=== PATIENT | female | born 1945 | race Caucasian/White ===

== ENCOUNTER 2019-08-30 15:50 | Observation (INO) | payer MEDICARE, OTHER, SELFPAY ==
[2019-08-30] VITALS (8 sets, daily range): BP systolic 115–137; BP diastolic 42–79; PULSE 75–87; RESP 14–22; TEMP 36.3–36.6; O2SAT 97–100; BMI 24.1
--- NOTE | 2019-08-30 16:02 | ED.NEUROSD ---
HPI - Neuro Symptoms/Deficit General Chief Complaint: Neuro Symptoms/Deficit Stated Complaint: thinks TIA a couple of hours ago Time Seen by Provider: 08/30/19 16:02 Source: patient and family () Mode of arrival: Ambulatory Limitations: no limitations History of Present Illness HPI Narrative: This is a 73 year old female who comes emergency department with complaint of TIA like symptoms. Patient states that earlier today at about 1:00 a.m. she had sort of an aura and her right lower vision that sort of migrated centrally. She states that she developed a little bit of a headache. She took delp-yon-iuxegfm preparation of Tylenol, aspirin and caffeine patient states about 2:00 a.m. today while she was sitting talking with her she sort of lost her words. She couldn't select words and when she did they were garbled and slurred and her describes them as dysarthric. This lasted for about 5 minutes and then resolved. Neither the patient nor the appreciated any other symptoms such as lateralizing weakness, numbness or tingling. No facial droop was noted. Patient states that 1 year ago she had very fleeting symptoms that were and has not had any since. She states she has a headache that she describes as sort of floaty at this time. She denies any aura or vision change currently. She states the 1 that occurred was about 30 minutes. She did not have any loss of vision. She also denies any chest pain, nausea, vomiting or other GI or urinary symptoms. She takes medication for overactive bladder and hormone replacement for thyroid. She has had trigger finger surgery x9, carpal tunnel and bunion surgery. She has some allergies to foods but denies any medication allergies. No tobacco, she had a half glass of wine last night, no illicit. Dr. Campos is her primary care. On Anticoagulants: No Related Data Home Medications Medication Instructions Recorded Confirmed ASCORBIC ACID (VITAMIN C) 500 mg PO QAM & PM #0 06/09/11 CA PANTOTHENATE/FOLIC ACID/VIT 1 tab PO Q DAY #0 06/09/11 (MULTIVITAMIN) CALCIUM CARBONATE (#CALCIUM 600) 1 tab PO Q DAY #0 06/09/11 CYANOCOBALAMIN (VITAMIN B-12) 1,000 mcg PO QDAY #0 06/09/11 Coenzyme Q10 (#COENZYME Q-10) 100 mg PO Q DAY #0 06/09/11 Fish Oil (#OMEGA 3) 1 - 2 cap PO TID #0 06/09/11 GLUCOSAMINE HCL/CHONDR BUSTILLOS A NA 1 - 2 tab PO TID #0 06/09/11 (Glucosamine-Chondroitin Caplet) SELENIUM (#SELENIUM) 200 mcg PO Q DAY #0 06/09/11 STRONTIUM (#STRONTIUM) 340 mg PO NOON & HS #0 06/09/11 Thioctic Acid (ALPHA LIPOIC ACID~) 200 mg PO Q DAY #0 06/09/11 [DHEA] #0 06/09/11 [GELATIN] 20 gr PO TID #0 06/09/11 [MAGNESIUM] #0 06/09/11 [THYROID COMPOUND ] 3 gr PO QAM #0 06/09/11 [VITAMIN K2] 1.5 mg PO AT NOON #0 06/09/11 cholecalciferol (vitamin D3) 5,000 iu PO QDAY #0 06/09/11 [Vitamin D3] CHOLECALCIFEROL (VITAMIN D3) 5,000 iu PO #0 05/20/12 MELATONIN (#MELATONIN) 5 mg PO HS #0 05/20/12 Pregnenolone (#PREGNENOLONE) 50 mg PO QDAY #0 05/20/12 [TESTOSTERONE LIPO CR] 20 mg TP #0 05/20/12 metronidazole [MetroCream] 0.75 % TOPICAL BID #45 gm 05/20/12 tacrolimus [Protopic] 0.1 TP Q DAY #0 05/20/12 [PROGESTERONE CREAM] #0 01/18/17 Previous Rx's Medication Instructions Recorded estradiol 2 mg tablet 3 mg PO DAILY #135 tab 07/14/18 mirabegron 25 mg tablet,extended 25 mg PO .QHS #90 tab 03/30/19 release 24 hr Allergies Allergy/AdvReac Type Severity Reaction Status Date / Time No Known Drug Allergies Allergy Verified 08/30/19 16:57 Review of Systems Review of Systems ROS Unobtainable: All systems reviewed & are unremarkable except as noted in HPI and below Patient History Social History (Updated 08/30/19 @ 16:36 by Brenda Guzmán DO) marital status: Smoking Status: Never smoker alcohol intake: current substance use type: does not use Smoking Status: Never smoker Exam Narrative Exam Narrative: GEN: well nourished, well appearing female, alert and oriented x 3, patient appears to be in mild distress. HEENT: Atraumatic, pupils are equal round reactive to light, extraocular movements are intact, nares are clear, TMs are clear with no fluid, there is no conjunctival pallor. Throat is clear without any exudates, erythema, tonsillar enlargement or uvular deviation, no facial droop. HEART: Regular rate and rhythm without murmur, clicks, rubs. LUNGS:Lungs clear to auscultation, no wheezes, rales, crackles, chest moves symmetrically ABD:bowel sounds normal, soft, non-tender, no guarding, rebound, rigidity, no masses noted, no hepatosplenomegaly :No CVA tenderness MSCL: Non-tender, no muscle atrophy, muscles strength 5/5 upper and lower extremities, full range of motion, normal gait NEURO:CN 2-12 intact, sensation normal, reflexes 2/4 upper and lower extremities. finger nose finger test normal, heel hammond test normal SKIN: No rash. No skin changes. Initial Vital Signs Initial Vital Signs: Vital Signs Temperature 97.8 F 08/30/19 16:01 Pulse Rate 80 08/30/19 16:01 Respiratory Rate 22 08/30/19 16:01 Blood Pressure 133/79 08/30/19 16:01 Pulse Oximetry 97 08/30/19 16:01 Scores NIH Stroke Scale Level of Conciousness: Alert, keenly responsive Ask month/age: Answers both questions correctly. Open/close eyes, close hand: Performs both tasks correctly Best gaze horizontal: Normal Facial palsy: Normal symetrical movement Left arm drift: No drift for full 10 sec Right arm drift: No drift for full 10 sec Left leg drift: No drift for full 10 sec Right leg drift: No drift for full 10 sec Limb ataxia: Absent Sensory on face/arms/legs: Normal, no sensory loss Best language: No aphasia, normal Dysarthria: Normal Extinction or inattention: No abnormality Course Orders Ordered: ED Orders 08/30/19 16:05 EKG-12 Lead Routine 08/30/19 16:25 Basic Metabolic Panel Stat Complete Blood Count AUTO DIFF Stat Partial Thromboplastin Time Stat Prothrombin Time INR Stat Troponin I Stat 08/30/19 16:26 CT head/brain wo con Stat Urine Drug Screen, Rapid Stat 08/30/19 16:27 CT angio head and neck Stat Sodium Chloride (Normal Saline 0.9%) 1,000 mls @ 150 mls/hr IV CONT NASIM Last Admin: 08/30/19 16:30 Dose: 150 mls/hr Documented by: KALEIGH Discontinued Medications Aspirin (Aspirin Chew) 324 mg PO NOW ONE Stop: 08/30/19 17:23 Last Admin: 08/30/19 17:37 Dose: 324 mg Documented by: KALEIGH Vital Signs Vital signs: Vital Signs - 8 hr 08/30/19 16:01 08/30/19 16:30 08/30/19 17:35 Temperature 97.8 F Pulse Rate 80 77 81 Respiratory Rate 22 14 22 Blood Pressure [Left Arm] 133/79 137/63 132/59 L Pulse Oximetry 97 97 97 08/30/19 18:00 08/30/19 18:30 Temperature Pulse Rate 87 79 Respiratory Rate 16 19 Blood Pressure [Left Arm] 115/42 L 129/53 L Pulse Oximetry 100 100 MDM - Neuro Symptoms/Deficit Lab Data Attestation: I reviewed the patient's lab results. Result diagrams: 08/30/19 16:25 08/30/19 16:25 Labs: Lab Results 08/30/19 08/30/19 08/30/19 Range/Units 16:25 16:25 16:25 WBC 5.0 (4.5-11.0) X10^3/uL RBC 4.83 (4.0-5.2) X10^6/uL Hgb 14.2 (12.0-16.0) g/dL Hct 41.6 (36-46) % MCV 86.2 (80-100) fL MCH 29.5 (26-34) PG MCHC 34.2 (30-36) % RDW 13.0 (11.6-14.8) % Plt Count 201 (150-400) X10^3/uL Neut % (Auto) 51.5 (50-75) % Lymph % (Auto) 32.4 (25-40) % [place] % (Auto) 13.2 (3-14) % Eos % (Auto) 1.8 L (2-4) % Baso % (Auto) 1.1 (0-2) % Neut # (Auto) 2600 (8935-2771) /uL Lymph # (Auto) 1600 (6789-9272) /uL [place] # (Auto) 700 (0-900) /uL Eos # (Auto) 100 (0-450) /uL Baso # (Auto) 100 (0-100) /uL PT 10.9 (10.1-12.7) SECONDS INR 0.9 (0.9-1.3) APTT 26 L (26.4-36.2) SECONDS Sodium 140 (137-145) mmol/L Potassium 4.2 (3.4-5.1) mmol/L Chloride 105 (98-107) mmol/L Carbon Dioxide 27 (22-32) mmol/L BUN 17 (7-17) mg/dL Creatinine 0.80 (0.52-1.04) mg/dL Estimated GFR > 60.0 (>60) mL/min BUN/Creatinine Ratio 21.3 (6-22) Glucose 86 (80-110) mg/dL Calcium 9.7 (8.4-10.2) mg/dL Troponin I < 0.012 (0.01-0.034) ng/mL Imaging Data CT scan - head: Radiologist's Impression: Lynne Nunes 73 [address] [place] [id number] CT Scan Report Signed Patient: Lynne Nunes EMR#: [id number] : [id number]:[id number] Age/Sex: 73 / FDate of Service: 08/30/19 Loc: ED Accession Number: [id number] Procedure: CT head/brain wo con Ordering Provider: Brenda Guzmán D.O. PROCEDURE: CT HEAD/BRAIN WO CON INDICATIONS: garbled speech, dysarthria x 5 minutes @ 1400 TECHNIQUE: Noncontrast 4.5 mm thick angled axial sections acquired from the foramen magnum to the vertex, with coronal and sagittal reformats. For radiation dose reduction, the following was used: automated exposure control, adjustment of mA and/or kV according to patient size. COMPARISON: None. FINDINGS: Image quality: Excellent. CSF spaces: Basal cisterns are patent. No extra-axial fluid collections. The ventricles are symmetric in size and shape. Brain: No intracranial bleeds or masses. There is cerebral volume loss for age, with resultant ventricular and sulcal prominence. There are periventricular and deep white matter chronic small vessel ischemic changes. There is intracranial internal carotid artery atherosclerosis. Skull and face: Calvarium and visualized facial bones appear intact, without suspicious lesions. Sinuses: Visualized sinuses and mastoids are clear. IMPRESSION: Normal intracranial study for age, without acute intracranial hemorrhage or CT findings of early infarction. Dictated by: Amor Fernando M.D. on 08/30/2019 at 16:12 Approved by: Amor Fernando M.D. on 08/30/2019 at 16:13 CTA - brain/neck: Radiologist's Impression: [address] [address] [address] Scan Report Signed Patient: Lynne Nunes EMR#: [id number] : [id number]:[id number] Age/Sex: 73 / FDate of Service: 08/30/19 Loc: ED Accession Number: [id number] Procedure: CT angio head and neck Ordering Provider: Brenda Guzmán D.O. PROCEDURE: CT ANGIO HEAD AND NECK INDICATIONS: garbled speech x 5 minutes. TECHNIQUE: Noncontrast images were previously performed and not repeated. After the administration of intravenous contrast, 1 mm thick sections acquired from the aortic arch through the [place]. Post-contrast 4.5 mm thick sections then re-acquired from the foramen magnum to the vertex. 3-dimensional obzkpwf-csdimlvrx-xozzrdmbub (MIP) and/or volume rendering reformats were acquired of the central intracranial vasculature and neck separately. COMPARISON: [facility], CT, CT HEAD/BRAIN WO CON, 08/30/2019, 17:03. FINDINGS: Image quality: Excellent. BRAIN: CSF spaces: Ventricles are normal in size and shape. Basal cisterns are patent. No extra-axial fluid collections. Brain: No midline shift. No intracranial bleeds or masses. Win-white matter interface appears intact. Skull and face: Calvarium and facial bones appear intact, without suspicious lesions. Orbits appear normal. Sinuses: Sinuses and mastoids are clear. HEAD CT ANGIOGRAPHY: Anterior circulation: Intracranial internal carotid arteries are normal in size and flow. The flow within the paired anterior cerebral arteries is normal and symmetric. The flow within the middle cerebral arteries is normal and symmetric. The anterior communicating artery is seen. No aneurysms are seen. Posterior circulation: Visualized portions of the vertebral arteries demonstrate normal caliber, and join to form a normal appearing basilar artery. Flow within the posterior cerebral arteries is normal and symmetric. No aneurysms are seen. NECK CT ANGIOGRAPHY: Carotid system: The great vessels demonstrate a conventional anatomy as they arise from the aortic arch. The origins of the common carotid arteries appear patent. The common carotid arteries demonstrate normal caliber and courses. The bifurcation regions are both widely patent. The internal carotid arteries demonstrate normal calibers and courses. Posterior circulation: The origins of the vertebral arteries both appear widely patent. Incidental note is made that the left vertebral artery arises directly from the aortic arch, which is considered to be a normal developmental variant. The more superior extracranial portions of both vertebral arteries also demonstrate normal courses and calibers. They join to form a normal appearing basilar artery. Soft tissues: Visualized neck soft tissues demonstrate no suspicious abnormalities. Bones: No suspicious bony lesions. Visualized cervical spine appears normally aligned. Age-appropriate bony degenerative changes are seen. IMPRESSION: No significant intracranial arterial abnormality is seen. No abnormal enhancement can be seen of the brain. Normal appearing carotids and vertebral arteries. Anatomic variant of a direct origin of the left vertebral artery from the aortic arch incidentally noted. Any quantitative measurements of stenosis were performed using NASCET criteria. Dictated by: Amor Fernando M.D. on 08/30/2019 at 17:06 Approved by: Amor Fernando M.D. on 08/30/2019 at 17:09 ECG Data Attestation: I personally reviewed and interpreted this ECG as follows: Prior ECG tracings: not available for review Interpretation: Sinus rhythm rate of 75 MD 191 QRS is 68 QTC of 377. No ST elevation or depression. [facility] Narrative Medical decision making narrative: Patient NIH is 0. She had one episode of some does with no additional so she is not a tPA candidate but does sound like she may have had a TIA earlier. Head CT and CT angiography show IV labs do not show any major abnormalities. EKG is sinus rhythm. No prior history of Afib. ASA 324 mg given. Patient continues to be asymptomatic. Patient and family are comfortable with observation for TIA. Discussed with Dr. Klein who accepts for observation for TIA. Discharge Plan Departure Patient Disposition: Admitted as Observation Clinical Impression: TIA (transient ischemic attack)
--- NOTE | 2019-08-30 16:26 | DI.CT.S_ITS ---
PROCEDURE: CT HEAD/BRAIN WO CON INDICATIONS: garbled speech, dysarthria x 5 minutes @ 1400 TECHNIQUE: Noncontrast 4.5 mm thick angled axial sections acquired from the foramen magnum to the vertex, with coronal and sagittal reformats. For radiation dose reduction, the following was used: automated exposure control, adjustment of mA and/or kV according to patient size. COMPARISON: None. FINDINGS: Image quality: Excellent. CSF spaces: Basal cisterns are patent. No extra-axial fluid collections. The ventricles are symmetric in size and shape. Brain: No intracranial bleeds or masses. There is cerebral volume loss for age, with resultant ventricular and sulcal prominence. There are periventricular and deep white matter chronic small vessel ischemic changes. There is intracranial internal carotid artery atherosclerosis. Skull and face: Calvarium and visualized facial bones appear intact, without suspicious lesions. Sinuses: Visualized sinuses and mastoids are clear. IMPRESSION: Normal intracranial study for age, without acute intracranial hemorrhage or CT findings of early infarction. Dictated by: Amor Fernando M.D. on 08/30/2019 at 16:12 Approved by: Amor Fernando M.D. on 08/30/2019 at 16:13
--- NOTE | 2019-08-30 16:27 | DI.CT.S_ITS ---
PROCEDURE: CT ANGIO HEAD AND NECK INDICATIONS: garbled speech x 5 minutes. TECHNIQUE: Noncontrast images were previously performed and not repeated. After the administration of intravenous contrast, 1 mm thick sections acquired from the aortic arch through the [place]. Post-contrast 4.5 mm thick sections then re-acquired from the foramen magnum to the vertex. 3-dimensional violiwl-lqmiixoht-wughbamfhh (MIP) and/or volume rendering reformats were acquired of the central intracranial vasculature and neck separately. COMPARISON: [facility], CT, CT HEAD/BRAIN WO CON, 08/30/2019, 17:03. FINDINGS: Image quality: Excellent. BRAIN: CSF spaces: Ventricles are normal in size and shape. Basal cisterns are patent. No extra-axial fluid collections. Brain: No midline shift. No intracranial bleeds or masses. Win-white matter interface appears intact. Skull and face: Calvarium and facial bones appear intact, without suspicious lesions. Orbits appear normal. Sinuses: Sinuses and mastoids are clear. HEAD CT ANGIOGRAPHY: Anterior circulation: Intracranial internal carotid arteries are normal in size and flow. The flow within the paired anterior cerebral arteries is normal and symmetric. The flow within the middle cerebral arteries is normal and symmetric. The anterior communicating artery is seen. No aneurysms are seen. Posterior circulation: Visualized portions of the vertebral arteries demonstrate normal caliber, and join to form a normal appearing basilar artery. Flow within the posterior cerebral arteries is normal and symmetric. No aneurysms are seen. NECK CT ANGIOGRAPHY: Carotid system: The great vessels demonstrate a conventional anatomy as they arise from the aortic arch. The origins of the common carotid arteries appear patent. The common carotid arteries demonstrate normal caliber and courses. The bifurcation regions are both widely patent. The internal carotid arteries demonstrate normal calibers and courses. Posterior circulation: The origins of the vertebral arteries both appear widely patent. Incidental note is made that the left vertebral artery arises directly from the aortic arch, which is considered to be a normal developmental variant. The more superior extracranial portions of both vertebral arteries also demonstrate normal courses and calibers. They join to form a normal appearing basilar artery. Soft tissues: Visualized neck soft tissues demonstrate no suspicious abnormalities. Bones: No suspicious bony lesions. Visualized cervical spine appears normally aligned. Age-appropriate bony degenerative changes are seen. IMPRESSION: No significant intracranial arterial abnormality is seen. No abnormal enhancement can be seen of the brain. Normal appearing carotids and vertebral arteries. Anatomic variant of a direct origin of the left vertebral artery from the aortic arch incidentally noted. Any quantitative measurements of stenosis were performed using NASCET criteria. Dictated by: Amor Fernando M.D. on 08/30/2019 at 17:06 Approved by: Amor Fernando M.D. on 08/30/2019 at 17:09
[2019-08-30] MEDS: SODIUM CHLORIDE 0.9% 1,000 ML 150 ML IV (16:30)
[2019-08-30 16:35] LABS: Add Manual Diff / Slide Review NO; Basophils Absolute Auto 100 /uL (0-100); Basophils Percent Auto 1.1 % (0-2); Eosinophils Absolute Auto 100 /uL (0-450); Eosinophils Percent Auto 1.8 % (2-4); Hematocrit 41.6 % (36-46); Hemoglobin 14.2 g/dL (12.0-16.0); Lymphocytes Absolute Auto 1600 /uL (1100-4500); Lymphocytes Percent Auto 32.4 % (25-40); Mean Corpuscular HGB Conc 34.2 % (30-36); Mean Corpuscular Hemoglobin 29.5 PG (26-34); Mean Corpuscular Volume 86.2 fL (80-100); Monocytes Absolute Auto 700 /uL (0-900); Monocytes Percent Auto 13.2 % (3-14); Neutrophils Absolute Auto 2600 /uL (1500-7000); Neutrophils Percent Auto 51.5 % (50-75); Platelet Count 201 X10^3/uL (150-400); Red Blood Cell Count 4.83 X10^6/uL (4.0-5.2)
[2019-08-30 16:36] LABS: INR 0.9 (0.9-1.3); Prothrombin Time 10.9 SECONDS (10.1-12.7)
[2019-08-30 16:38] LABS: PTT Partial Thromboplastin Tim 26 SECONDS (26.4-36.2)
[2019-08-30 16:39] LABS: BUN Creatinine Ratio 21.3 (6-22); Blood Urea Nitrogen 17 mg/dL (7-17); Calcium 9.7 mg/dL (8.4-10.2); Carbon Dioxide 27 mmol/L (22-32); Chloride 105 mmol/L (98-107); Estimated Glomerular Filt Rate > 60.0 mL/min (>60); Glucose 86 mg/dL (80-110); HEMOLYSIS 37 (0-50); Potassium 4.2 mmol/L (3.4-5.1); Sodium 140 mmol/L (137-145)
[2019-08-30 16:51] LABS: Troponin I < 0.012 ng/mL (0.01-0.034)
--- NOTE | 2019-08-30 17:00 | PC.NURSE ---
Slurred speech, now resolved. Has slight headache
[2019-08-30] MEDS: ASPIRIN 81 MG CHEW TAB 324 MG PO (17:37)
--- NOTE | 2019-08-30 20:05 | PC.ADMIT ---
[email or web address] [facility] [address] Admission Note: The patient,Lynne Nunes,73 y/o, was given written information regarding hospital policies, unit procedures and contact persons. Patient's smoking status: Never smoker. Pt arrived to room 211 via w/c. Able to ambulate to bed from w/c. IVF of NS started in ED continues to infuse at 150 ml/hr. Denies pain. NIH 0. Oriented to room and call system. Bed alarm placed on. Pt verbalized she will call for needs. Vital Signs - 8 hr 08/30/19 16:01 08/30/19 16:30 08/30/19 17:35 Temperature 97.8 F Pulse Rate 80 77 81 Respiratory Rate 22 14 22 Blood Pressure Blood Pressure [Left Arm] 133/79 137/63 132/59 L Pulse Oximetry 97 97 97 08/30/19 18:00 08/30/19 18:30 08/30/19 19:47 Temperature 97.3 F L Pulse Rate 87 79 75 Respiratory Rate 16 19 18 Blood Pressure 137/73 Blood Pressure [Left Arm] 115/42 L 129/53 L Pulse Oximetry 100 100 98
--- NOTE | 2019-08-30 20:35 | DI.MRI.S_ITS ---
PROCEDURE: MR STROKE Pre- and post-contrast brain MRI, non-contrast brain MR angiogram, pre- and postcontrast neck MR angiogram INDICATIONS: TIA TECHNIQUE: Brain: Noncontrast axial T1 spin echo, axial T2 fast spin echo, sagittal and axial FLAIR, coronal T2 fast spin echo, axial gradient echo, axial diffusion and ADC through the brain. After the administration of contrast, axial 3D VIBE of the cranial vasculature and brain. Brain MRA: Non-contrast 3-D time of flight MR angiogram, with multiple aoyjwtw-glbuxzbaz-jogoprqrcm (MIP) reformats performed. Neck MRA: Axial and sagittal TruFISP through the neck. Coronal dynamic MR angiogram during administration of contrast in the arterial and venous phases, with 3-dimenstional pvvctaa-bivngmjoz-dahipeeblg (MIP) reformats constructed from subtraction images. COMPARISON: [facility], CT, CT ANGIO HEAD AND NECK, 08/30/2019, 17:08. [facility], CT, CT HEAD/BRAIN WO CON, 08/30/2019, 17:03. FINDINGS: Image quality: Excellent. BRAIN: CSF spaces: Ventricles are normal in size and shape. Basal cisterns are patent. No extra-axial fluid collections. Brain: There is a small 4 x 6 x 3 mm enhancing lesion in the right internal auditory canal shows imaging characteristics most compatible with vestibular schwannoma. No intracranial bleeds or mass effects. Win-white matter interface is normal. Diffusion weighted images show no acute ischemic insults. Brainstem appears normal. There is mild, diffuse cerebral and loss. There are mild periventricular, subcortical, subinsular and pontine white matter chronic microvascular ischemic changes. No GRE weighted abnormalities identified in the brain parenchyma. Normal intravascular flow voids are present. No abnormal intracranial enhancement. Skull and face: Calvarial marrow signal is normal. Orbits appear normal. Sinuses: Sinuses and mastoids are clear. BRAIN MR ANGIOGRAM: Anterior circulation: Intracranial internal carotid arteries are normal in size and enhancement. The flow within the paired anterior cerebral arteries is normal and symmetric. The flow within the middle cerebral arteries is normal and symmetric. The anterior communicating artery is seen. No stenoses, occlusions, or aneurysms. Posterior circulation: The visualized portions of the vertebral arteries demonstrate normal caliber, and join to form a normal appearing basilar artery. The flow within the posterior cerebral arteries is normal and symmetric. No stenoses, occlusions, or aneurysms. Dural sinuses demonstrate normal postcontrast enhancement. NECK MR ANGIOGRAM: Carotids: Great vessels demonstrate a conventional anatomy as they arise from the aortic arch. The origins of the common carotid arteries appear patent. The calibers and courses of both common carotid arteries are normal. The bifurcation regions appear normal bilaterally. The internal carotid arteries demonstrate normal course and caliber. Posterior circulation: The origins of the vertebral arteries appear patent. The left vertebral artery arises from the aortic arch. More superior portions of both vertebral arteries demonstrate normal course and caliber, and join to form a normal appearing basilar artery. Miscellaneous: Subclavian arteries appear patent. Pre-contrast images through the neck show no soft tissue abnormalities. IMPRESSION: BRAIN MRI: 1. No acute intracranial disease process. 2. No areas of acute infarction. 3. Mild diffuse cerebral volume loss. 4. Mild white matter microvascular ischemic changes. 5. 4 x 6 x 3 mm enhancing mass in the right internal auditory canal most compatible with vestibular schwannoma. BRAIN MR ANGIOGRAM: Negative examination. NECK MR ANGIOGRAM: Negative examination. Dictated by: Ada Rodriguez MD, PhD on 08/31/2019 at 11:48 Approved by: Ada Rodriguez MD, PhD on 08/31/2019 at 11:59
--- NOTE | 2019-08-30 20:40 | DI.ECHO.S_ITS ---
[facility] +---------+ : : [address] : : : : [id number] : : : : Phone: [phone]+ Echocardiogram Report + + :Name: MIKEY TEJADA Study Date: 08/31/2019 Height: 65 in : :[facility] [employer] [facility] Weight: 145 lb : : Gender: Female BSA: 1.7 m2 : :: 1945 Age: 73 yrs BP: 132/58 mmHg: :Reason For Study: TIA : :Ordering Physician: Yeimi : :Hospitalist Performed By: Yeison Bundy : :Referring: DAE KITCHEN : + + Interpretation Summary The left ventricle is normal in size. The ejection fraction is estimated to be 60-65%. The right ventricle is normal in size and function. There is mild to moderate mitral regurgitation. The right ventricular systolic pressure is estimated to be at least 33 mmHg based on an estimated right atrial pressure of 8 mm Hg. Injection of contrast documented no interatrial shunt. Procedure: A two-dimensional transthoracic echocardiogram with color flow and Doppler was performed. The study quality was technically adequate. A saline contrast injection was performed to assess for cardiac shunting. There is no prior echocardiogram noted for this patient. The patient was in normal sinus rhythm during the exam. Left Ventricle: The left ventricle is normal in size. There is normal left ventricular wall thickness. There is no thrombus. A false chord is noted (normal variant). Left ventricular systolic function is normal. The ejection fraction is estimated to be 60-65%. Left ventricular wall motion is normal. MV E/A: 1.2 Med Peak E' Elvin: 8.9 cm/sec E/E' med: 14.7. Right Ventricle: The right ventricle is normal in size and function. Atria: The left atrium is borderline dilated. Right atrial size is normal. The interatrial septum is intact with no evidence for an atrial septal defect. Injection of contrast documented no interatrial shunt. Mitral Valve: There is mild mitral annular calcification. The mitral valve leaflets are mildly calcified. There is mild to moderate mitral regurgitation. Aortic Valve: The aortic valve is not well visualized. The aortic valve is slightly calcified. There is no hemodynamically significant valvular aortic stenosis. There is trace aortic regurgitation. Tricuspid Valve: The tricuspid valve is normal. There is mild tricuspid regurgitation. The right ventricular systolic pressure is estimated to be at least 33 mmHg based on an estimated right atrial pressure of 8 mm Hg. Pulmonic Valve: The pulmonic valve is not well seen, but is grossly normal. There is trace pulmonic regurgitation. Great Vessels: The aortic root is normal size. The ascending aorta could not be visualized. The pulmonary artery is normal size. The IVC is dilated (diameter is greater than 2.1 cm) yet it collapses greater than 50% with a sniff. This suggests a right atrial pressure of 8 mm Hg. Pericardium/ Pleura There is no pericardial effusion. There is an anterior echo-free space consistent with a fat pad. There is no pleural effusion. MMode/2D Measurements & Calculations LVIDd: 3.7 cm LVOT diam: 1.9 cm LVIDs: 2.5 cm Ao root diam: 2.6 cm FS: 32.4 % EPSS: 0.60 cm IVSd: 0.88 cm LVPWd: 0.99 cm LV hernandez. diameter/BSA (cm/m^2): 2.2 LV sys. diameter/BSA (cm/m^2): 1.5 LA A2 area: 18.5 cm2 RA long axis: 4.6 cm LA A4 area: 17.4 cm2 RA area: 12.1 cm2 LA length (vol): 4.7 cm RA vol: 27.3 ml LA vol: 57.9 ml RA : 15.8 ml/m2 LA vol index: 33.6 ml/m2 TAPSE: 2.9 cm Doppler Measurements & Calculations Ao V2 max: 129.3 cm/sec LVOT Max Elvin: 100.7 cm/sec Ao V2 mean: 84.5 cm/sec LV V1 max P.1 mmHg Ao max P.7 mmHg LV V1 VTI: 21.8 cm Ao mean P.3 mmHg KELLY(I,D): 2.4 cm2 Ao V2 VTI: 26.7 cm KELLY(V,D): 2.3 cm2 sev ratio: 0.82 KELLY indexed to BSA (cm^2/m^2): 1.4 MV E max elvin: 130.6 cm/sec TR max elvin: 249.9 cm/sec MV A max elvin: 110.2 cm/sec TR max P.0 mmHg MV E/A: 1.2 PA V2 max: 98.7 cm/sec Med Peak E' Elvin: 8.9 cm/sec PA V2 mean: 69.4 cm/sec E/E' med: 14.7 PA mean P.2 mmHg Lat Peak E' Elvin: 10.6 cm/sec PA Accel Time: 0.09 sec E/E' lat: 12.4 E/e' average: 13.5 MV dec time: 0.20 sec SV(LVOT): 63.3 ml Reading Physician:02:06 PM
[2019-08-30 21:05] LABS: Magnesium 2.3 mg/dL (1.6-2.3)
[2019-08-30] MEDS: MELATONIN 3 MG TABLET 6 MG PO (22:43)
--- NOTE | 2019-08-30 23:16 | PM.HP.1 ---
History of Present Illness History of Present Illness Date Patient Seen: 08/30/19 Time Patient Seen: 20:10 Chief complaint: thinks TIA a couple of hours ago Narrative: Ms. Lynne Nunes is a 73-year-old female patient with a history significant for migraines, functional murmur, irritable bladder with urgency who presents to the ER following episode of aphasia. Patient states that approximately 11 this morning she was working in a computer when she developed change in her vision in the right lower quadrant that progressed into the central vision of her right eye. The patient also describes an atypical headache with pain moving from her protestant to the lateral head and moving back and forth side to side. Her who is retired OBGYN physician had her take migraine medication that sounds to be Fioricet. The patient's symptoms lasted for 30 minutes returning to normal. Patient subsequently was speaking with her in approximately 2 in the afternoon when she developed difficulty speaking described as speaking gibberish. The symptoms lasted for 5 minutes. Patient endorses a history of a similar situation occurring approximately 1 year ago with aphasia that was not evaluated at that time. Prior to today's events the patient states she has been in good health and denies fevers or chills, headaches or dizziness, nasal congestion or sore throat. She has had no chest pain and denies palpitations but notes history of a functional murmur since childhood. She has had no shortness of breath cough or wheezing. She denies abdominal pain, heartburn, nausea vomiting, diarrhea or constipation. She has urinary urgency for which she takes Myrbetriq. She reports balance problems for which she is taking yoga. She has sustained a fall 2 weeks ago when she got ?tangled up in equipment?. Upon arrival to the ER the patient is afebrile with temperature 97.8?, heart rate of 80, blood pressure 133/79, respirations of 22 saturating 97% on room air. CT of the head was obtained was negative for early infarct hemorrhage. The CT angio of the head neck was obtained which shows no filling defects. On laboratory analysis she has white count of 5.0 with hemoglobin of 14.2 and hematocrit of 41.6 and platelets of 201. She has a PT of 10.4 and INR of 0.9 and PTT of 26. Her electrolytes are all within normal limits she has a BUN of 17 and creatinine 0.8. Her nonfasting glucose is 86. Troponin is less than 0.01 2. On ED evaluation patient's symptoms had completely resolved within NIH score 0. Patient is admitted to the medicine service for further evaluation and monitoring of TIA. Patient History Medical History Heart murmur (Acute) Hormone replacement therapy (Inactive) Migraines (Acute) Rosacea (Acute) Urge incontinence of urine (Inactive 05/28/15) Surgical History History of bunionectomy (Acute) History of carpal tunnel release of both wrists (Acute) Status post trigger finger release (Acute) Family & Social History Family History (Updated 08/30/19 @ 23:33 by CASEY Dawson) Father Congestive heart failure Mother Stroke Sister No significant medical problems Social History: household members spouse Prior Living Arrangements House Safety & Behavioral: Feels Safe in Current Yes Environment Been Physically Hurt or No Threatened By a Person Suicidal Ideation Description None Suicide Plan Description No Plan Tobacco & Substance use: Smoking Status Former smoker alcohol intake current alcohol intake frequency a few times a week Substance Use Type does not use Comment: Patient lives in a single family home with her to whom she has been for 50 years who is retired physician. She endorses a family history of her father passing away from CHF and her mother having a stroke. She has a sister who she describes as healthy with no significant medical issues and 2 children both in good health. Smoking: Patient smoked socially in college only, no other use of tobacco products. Alcohol: Patient endorses 2-3 glasses of wine per week Substance use: Patient denies recreation pharmaceuticals, herbal or cannabis products. Advanced directives: The patient states her desire to be FULL CODE. She designates her Nilay to be her surrogate decision maker. Meds Home Medications and Allergies Home Medications Medication Instructions Recorded Confirmed Type cholecalciferol (vitamin D3) 5,000 iu PO QDAY #0 06/09/11 History [Vitamin D3] magnesium 400 mg PO DAILY #0 06/09/11 08/30/19 History melatonin 20 mg PO BEDTIME #0 05/20/12 08/30/19 History metronidazole [MetroCream] 0.75 % TOPICAL BID #45 gm 05/20/12 08/30/19 History estradiol 2 mg tablet 3 mg PO DAILY #135 tab 07/14/18 08/30/19 Rx mirabegron 25 mg tablet,extended 25 mg PO .QHS #90 tab 03/30/19 08/30/19 Rx release 24 hr alpha lipoic acid 200 mg PO DAILY 08/30/19 08/30/19 History aspirin [Aspirin Low Dose] 81 mg PO QPM 08/30/19 08/30/19 History calcium carbonate-vitamin D3 1 tab PO QPM 08/30/19 08/30/19 History [Calcium 600 + D(3)] coQ10 (ubiquinol) 200 mg PO DAILY 08/30/19 08/30/19 History xaztgcjlxto-fbahepkzz-ime C-Mn 1.5 cap PO BID 08/30/19 08/30/19 History [Glucosamine Chondroitin MaxStr] hydroquinone microspheres 1 applic TOPICAL QAM AND QHS 08/30/19 08/30/19 History lutein 20 mg PO DAILY 08/30/19 08/30/19 History Allergies Allergy/AdvReac Type Severity Reaction Status Date / Time No Known Drug Allergies Allergy Verified 08/30/19 16:57 Review of Systems Review of Systems Narrative: All systems are reviewed and are unremarkable and discussed in HPI above. Exam Vital Signs (past 8 hours): - 08/30/19 16:01 08/30/19 16:30 08/30/19 17:35 Temperature 97.8 F Pulse Rate 80 77 81 Respiratory Rate 22 14 22 Blood Pressure Blood Pressure [Left Arm] 133/79 137/63 132/59 L Pulse Oximetry 97 97 97 08/30/19 18:00 08/30/19 18:30 08/30/19 19:47 Temperature 97.3 F L Pulse Rate 87 79 75 Respiratory Rate 16 19 18 Blood Pressure 137/73 Blood Pressure [Left Arm] 115/42 L 129/53 L Pulse Oximetry 100 100 98 08/30/19 21:15 08/30/19 21:53 Temperature 97.3 F L Pulse Rate 75 Respiratory Rate 18 Blood Pressure 137/73 Blood Pressure [Left Arm] Pulse Oximetry 98 100 Oxygen Delivery Method Room Air Narrative Exam Narrative: GENERAL APPEARANCE: well developed, well nourished woman appearing younger than her stated age, in no acute distress. HEENT: Symmetrical facies, no ptosis, PERRLA, conjunctiva clear, EOMs intact without nystagmus, no sinus tenderness to percussion, no rhinorrhea, mucous membranes are moist and pink without lesions or exudate. NECK/THYROID: neck supple, no JVD, no carotid bruit, no thyromegaly, trachea midline. LYMPH NODES: no cervical or supraclavicular lymphadenopathy. SKIN: [place], warm and dry, no visible lesions, rashes, ulcerations or petechiae. HEART: regular rate and rhythm, S1-S2, no murmur is appreciated on auscultation,, no rubs or gallops, brisk capillary refill, no edema LUNGS: clear to auscultation bilaterally, no coarseness crackles or wheezing, no cough present CHEST: Symmetrical movement, no accessory muscle use, good tidal volume. ABDOMEN: Soft, no distention, no abdominal tenderness, no guarding or peritoneal signs, no organomegaly, no flank or suprapubic tenderness, active bowel tones. BACK: Normal curvature, nontender to palpation, no CVA tenderness on percussion EXTREMITIES: moves all extremities, carbon dioxide operator are equal, strength is 5/5 and symmetrical, no deformities or joint effusions, contusion left anterior tibia. NEUROLOGIC: AAO x4, cranial nerves II-XII grossly intact, sensation intact to light touch, NIH score is 0. PSYCH: Patient is presently responsive, good insight, linear thought process, cooperative, appropriate with stable behavior Objective Labs Result Diagrams: 08/30/19 16:25 08/30/19 16:25 Labs: Laboratory Results - last 24 hr 08/30/19 08/30/19 08/30/19 16:25 16:25 16:25 WBC 5.0 RBC 4.83 Hgb 14.2 Hct 41.6 MCV 86.2 MCH 29.5 MCHC 34.2 RDW 13.0 Plt Count 201 Neut % (Auto) 51.5 Lymph % (Auto) 32.4 [place] % (Auto) 13.2 Eos % (Auto) 1.8 L Baso % (Auto) 1.1 Neut # (Auto) 2600 Lymph # (Auto) 1600 [place] # (Auto) 700 Eos # (Auto) 100 Baso # (Auto) 100 PT 10.9 INR 0.9 APTT 26 L Sodium 140 Potassium 4.2 Chloride 105 Carbon Dioxide 27 BUN 17 Creatinine 0.80 Estimated GFR > 60.0 BUN/Creatinine Ratio 21.3 Glucose 86 Calcium 9.7 Magnesium Troponin I < 0.012 08/30/19 16:25 WBC RBC Hgb Hct MCV MCH MCHC RDW Plt Count Neut % (Auto) Lymph % (Auto) [place] % (Auto) Eos % (Auto) Baso % (Auto) Neut # (Auto) Lymph # (Auto) [place] # (Auto) Eos # (Auto) Baso # (Auto) PT INR APTT Sodium Potassium Chloride Carbon Dioxide BUN Creatinine Estimated GFR BUN/Creatinine Ratio Glucose Calcium Magnesium 2.3 Troponin I Assessment & Plan Assessment & Plan narrative: This is a 71-year-old female patient who presents to the ER following 5 minutes episode of aphasia which is a 2nd time event the 1st occurring a year ago. Patient also has a history of migrainous headaches presenting with right visual field deficit progressing to central vision that was antecedent to the episode of aphasia. 1. Transitory ischemic attack, acute, resolved upon arrival, active -patient with 5 minutes episode of expressive aphasia reported as speaking gibberish, no notation of facial droop, ptosis, vision changes, arm weakness or ataxia. -the patient notes this is the 2nd such event with similar presentation of aphasia occurring 1 year ago. -patient with an antecedent migraine headache occurring approximately 3 hours prior with right lower visual field loss resolving in 30 minutes with medication. The patient had returned to baseline between events. -NIH score upon arrival to the ER 0. -Head CT and CT angio of the head and neck are unremarkable. -will obtain echocardiogram in morning. -will obtain MR stroke protocol in the morning. -passed bedside swallow eval. -serial neurologic monitoring with the patient on telemetry overnight. -ordered aspirin 81 mg daily. -ordered atorvastatin 20 mg daily. -will obtain lipid panel in the morning, hemoglobin A1c is not indicated with glucose of 86 point arrival in the ER. 2. Migraine headache, chronic, resolved prior to arrival, active. -the patient provides history of migraine headaches occurring approximately monthly the last being 1 month ago. -she describes her symptoms as described as typical with visual changes but notes headache was different moving around her head bilaterally including temples, lateral, and occipital but never including the crown of her head. -patient took medication provider prior which sounds to be Fioricet with resolution of her headache within 30 minutes. -the patient has no routine abortive medication. 3. Heart murmur, chronic, stable. -patient states she has had complete cardiac workup decades ago with identification of functional murmur. -patient has had no chest pain and denies shortness of breath and has no exertional dyspnea. -will obtain echocardiogram in the morning. 4. Urinary urgency, chronic, present on admission, stable. -Continue patient's home regimen of Myrbetriq 25 mg daily. VTE prophylaxis: SCDs, Lovenox IV fluid: Saline lock Diet: Heart healthy The patient is admitted to the hospital due to the severity of her symptoms and risk of potential complications adverse events. The patient is admitted as an outpatient with expected length of stay to be less than 2 midnights. Scores GCS [place] coma scale eye opening: Spontaneous [place] coma scale verbal response: Orientated Erika coma scale motor response: Obey commands [place] coma scale total score: 15 ABCD2 Age >= 60 years: yes Initial BP. Either SBP >= 140 or DBP >= 90.: no Clinical features of the TIA: other symptoms Duration of symptoms: < 10 minutes History of diabetes: no ABCD2 Score: 1 NIHSS Level of Conciousness: Alert, keenly responsive Ask month/age: Answers both questions correctly. Open/close eyes, close hand: Performs both tasks correctly Best gaze horizontal: Normal Visual parr: No visual loss Facial palsy: Normal symetrical movement Left arm drift: No drift for full 10 sec Right arm drift: No drift for full 10 sec Left leg drift: No drift for full 5 sec Right leg drift: No drift for full 5 sec Limb ataxia: Absent Sensory on face/arms/legs: Normal, no sensory loss Best language: No aphasia, normal Dysarthria: Normal Extinction or inattention: No abnormality Total NIH Stroke scale score: 0 Quality VTE Deep Vein Thrombosis/Pulmonary Embolism Present on Admission: No
[2019-08-31 00:28] VITALS: BP 113/52; PULSE 84; RESP 16; TEMP 37.3; O2SAT 97
[2019-08-31 00:33] VITALS: O2SAT 97
[2019-08-31 04:00] VITALS: O2SAT 94
[2019-08-31 06:00] VITALS: BP 104/55; PULSE 74; RESP 16; TEMP 36.8; O2SAT 94
[2019-08-31 07:13] LABS: BUN Creatinine Ratio 15.6 (6-22); Blood Urea Nitrogen 14 mg/dL (7-17); Calcium 8.9 mg/dL (8.4-10.2); Carbon Dioxide 24 mmol/L (22-32); Chloride 106 mmol/L (98-107); Cholesterol 167 mg/dL (140-199); Estimated Glomerular Filt Rate > 60.0 mL/min (>60); Glucose 98 mg/dL (80-110); HDL Cholesterol 40 mg/dL (40-60); HEMOLYSIS < 15 (0-50); LDL Cholesterol Calculated 106 mg/dL (<100); Potassium 4.1 mmol/L (3.4-5.1); Sodium 138 mmol/L (137-145); Triglycerides 106 mg/dL (35-150)
[2019-08-31 07:20] LABS: Add Manual Diff / Slide Review NO; Basophils Absolute Auto 0 /uL (0-100); Basophils Percent Auto 0.8 % (0-2); Eosinophils Absolute Auto 100 /uL (0-450); Hematocrit 39.3 % (36-46); Hemoglobin 13.5 g/dL (12.0-16.0); Lymphocytes Absolute Auto 1600 /uL (1100-4500); Mean Corpuscular HGB Conc 34.3 % (30-36); Mean Corpuscular Hemoglobin 29.6 PG (26-34); Mean Corpuscular Volume 86.3 fL (80-100); Monocytes Absolute Auto 500 /uL (0-900); Neutrophils Absolute Auto 2100 /uL (1500-7000); Neutrophils Percent Auto 48.2 % (50-75); Platelet Count 183 X10^3/uL (150-400); Red Blood Cell Count 4.55 X10^6/uL (4.0-5.2); Red Cell Distribution Width 12.9 % (11.6-14.8); White Blood Cell Count 4.3 X10^3/uL (4.5-11.0)
[2019-08-31 08:59] VITALS: BP 149/66; PULSE 80; RESP 18; O2SAT 98
[2019-08-31] MEDS: SODIUM CHLORIDE 0.9% FLUSH 10 ML IV (09:00)
--- NOTE | 2019-08-31 09:01 | PC.NURSE ---
Pt cant have cow cheese, Only goat cheese.
[2019-08-31] MEDS: ENOXAPARIN 40 MG/0.4 ML SYRINGE SUBCUT (09:11)
[2019-08-31] MEDS: ASPIRIN EC 81 MG TABLET PO (09:12)
--- NOTE | 2019-08-31 10:38 | PT.IIE ---
Surgical History (Last Reviewed 08/30/19 @ 23:32 by CASEY Dawson) History of bunionectomy (Acute) History of carpal tunnel release of both wrists (Acute) Status post trigger finger release (Acute) Medical History (Last Reviewed 08/30/19 @ 23:32 by CASEY Dawson) Heart murmur (Acute) Hormone replacement therapy (Inactive) Migraines (Acute) Rosacea (Acute) Urge incontinence of urine (Inactive 05/28/15) Physical Therapy Inpatient Evaluation/Re-Eval M1 PT/OT-IP Prior Functional Status Start: 08/31/19 08:07 Freq: NEEDED Status: Active Protocol: Document 08/31/19 08:35 HH (Rec: 08/31/19 10:37 [email or web address]) Medical Review Prior Functional Status Medical History Reviewed Yes Diet/Fluid Consistency Regular Communication no deficits noted. Able to make needs known Mobility and Gait Independent for all mobility without AD. Participate yoga 2x/week. Activities of Daily Living and IADL's Independent for all ADLs and IADLs without AD. Able to drive independently Prior Functional Level (Other details) Pt reports she had cataract sx bilaterally and only have tunnel vision. Social History Household Members spouse Living Arrangements House Number of Floors (Floors) One Floor Number of Stairs To Enter/Railing? 3 TUAN without rails Home Environment Standard Height Toilet,Walk in Shower Employment Status Retired Additional Social History Comment Patient lives in a single family home with her to whom she has been for 50 years who is retired physician. Patient endorses a history of a similar situation occurring approximately 1 year ago with aphasia that was not evaluated at that time. She endorses a family history of her father passing away from CHF and her mother having a stroke. She has a sister who she describes as healthy with no significant medical issues and 2 children both in good health. M2 PT-IP Current Condition Start: 08/31/19 08:07 Freq: NEEDED Status: Active Protocol: Document 08/31/19 08:35 HH (Rec: 08/31/19 10:37 [email or web address]) Physical Therapy Current Condition Current Condition Evaluation Date 08/31/19 Treatment Diagnosis Possible TIA, difficulty word finding, visual fied deficit Onset Date 08/30/19 Weight Bearing Status Weight Bearing Status Full Weight Bearing M3 PT-IP Subjective Start: 08/31/19 08:07 Freq: NEEDED Status: Active Protocol: Document 08/31/19 08:35 HH (Rec: 08/31/19 10:37 [email or web address]) Subjective Physical Therapy Visit Type Type Initial Evaluation Visit Start Time 08:35 Visit Stop Time 09:50 Total Visit Minutes 15 Number of HOUSE CARPENTER Visits 0 Physical Therapy Visit Comments Patient Comments I feel completely normal at this point without any difficulty. Patient Goals To return home with . Therapy Pain Assessment Pain Present Pain Present Denied Pain M4 PT-IP Mobility and Gait Start: 08/31/19 08:07 Freq: NEEDED Status: Active Protocol: Document 08/31/19 08:35 HH (Rec: 08/31/19 10:37 [email or web address]) PT-Bed Mobility Assessment Rolling Type of Rolling Bilateral Level of Assist Independent Supine to Sit Supine to Sit Independent Sit to Supine Sit to Supine Independent Scooting Scooting to Edge of Bed Independent Scooting Up and Down in Bed Independent PT-Transfer Assessment Sit to and From Stand Sit to and from Stand Independent Equipment Transfer Assistive Device None Orthotic/Prosthetic Devices or Brace: No Transfers Transfer Destination Bed,Chair Transfer Technique Stand Step Pivot Transfer Ability Level of Assist Independent Comments Mobility Comments Pt was in bed upon assessment. BP at 120s/60s before mobility. She was able to sit up at edge of bed independently for neuro and physical assessment. Pt stood up without AD and amb to bedside chair. There's no gross/ fine motor control deficit who was able to single leg balance >30 bilaterally. Coordination, ROM and strength are all intact. Pt then amb the entire AC unit without AD and assistance. Returned to bed after assessment with call light within reach. BP at 149 /66 Gait Assessment Gait Gait Assistance Required: Independent Distance (Feet) 250 Able to Maintain Weight Bearing Status Yes During Gait Assistive Devices Assistive Device None Orthotic/Prosthetic Devices or Brace: No Gait Deviations General Gait Pattern Within Normal Limits Comments Gait Comments Pt was able to amb without gait belt and AD independently . There's no signs of LOB/ gait deviation. Stair Climbing Assessment Evaluation Level of Assist On Stairs Independent Devices Stair Climbing Assistive Devices None Technique/Endurance Stair Climbing Direction Ascend and Descend Stair Climbing Technique Step Over Step Comments Stair Climbing Comments no signs of LOB PT-Balance Assessment Sitting Balance and Reactions Static Sitting Balance Ability Normal Dynamic Sitting Balance Ability Normal Standing Balance and Reactions Static Standing Balance Ability Normal Dynamic Standing Balance Ability Normal Balance Tests Single Limb Standing >30 B M5 PT-IP Objective Assessments Start: 08/31/19 08:07 Freq: NEEDED Status: Active Protocol: Document 08/31/19 08:35 (Rec: 08/31/19 10:37 [email or web address]) Orientation Orientation/Cognition Level of Alertness Alert Orientation Name,Age,Birthday,Month,Date, Year,Day of Week,Place, Situation Language Function Ability No Deficits Noted Safety Awareness Understands Safety Issues Memory Description No Deficits Noted Comments noted decreased peripheral visual field and unable to idenitfy PT's number of fingers except central field. Pt reports this is d/t cataract surgery from 2013. Gross Range of Motion Upper Extremity ROM Assessment Within Functional Limits Lower Extremity ROM Assessment Within Functional Limits Strength Upper Extremity Strength Assessment Within Functional Limits Shoulder 5/5 Elbow 5/5 Wrist 5/5 Hand 5/5 Lower Extremity Strength Assessment Within Functional Limits Hip 5/5 Knee 5/5 Ankle 5/5 Coordination Assessment Gross Coordination Gross Coordination WNL Assessment Finger to Nose Test Normal Performance Pronation/Supination Test Normal Performance Foot Tapping Test Normal Performance Heel on Patino Test Normal Performance Sensation Assessment Sensation Gross Sensation WNL Light Touch Intact Proprioception (Position) Intact Muscle Tone Muscle Tone WNL Yes Other Assessments Other Other Assessments No facial droop able to mimic facial expression. M6 PT-IP Treatment Start: 08/31/19 08:07 Freq: NEEDED Status: Active Protocol: Document 08/31/19 08:35 (Rec: 08/31/19 10:37 [email or web address]) Physical Therapy Treatment Education Education Provided Safety M7 PT-IP Assessment and Plan Start: 08/31/19 08:07 Freq: NEEDED Status: Active Protocol: Document 08/31/19 08:35 (Rec: 08/31/19 10:37 [email or web address]) PT Summary Assessment and Plan Potential Rehabilitation Potential Excellent Status of Condition at Evaluation Stable Summary Progress Towards Goals Safe For Discharge Assessment Summary Pt is 73yo female admitted to ER yesterday for possible TIA d/t noticeable word finding difficulties and visual field loss. Upon assessment, There's no gross/ fine motor control deficit who was able to single leg balance >30 bilaterally. Coordination, ROM and strength are all intact. Pt then amb the entire AC unit and climb stair without AD and assistance. She is currently at baseline for all mobility. However, pt does have tunnel vision d/t cataract surgery from few years ago. Pt does not need therapy at this point and will be safe to d/c home. Frequency of Treatment Frequency Of Treatment Discharge Recommendations To Nursing Amount of Assist Needed Independent Discharge Recommendations PT Discharge Recommendations Home
--- NOTE | 2019-08-31 10:45 | CM.DANOTE ---
Addendum entered by Comfort Nunez LPN 08/31/19 15:04: Pt now with d/c to home setting and followup with her PCP: Beth. MRI was - CVA but did, per Dr. Klein's d/c notes, show R vestibular schwannoma and pt will follow up with her PCP for further outpt followup. A check in now with pt shows that she and her are now going over the final d/c instructions with ENA Jones and then pt will d/c to home. No concerns re the d/c today are identified. Original Note: Discharge Planning/Care Management DCP: assessment: case received, EMR reviewed. Discussed in Team Rounds. Pt is a 73 year old female who admitted last night to care of hospitalist team. Payer: Medicare and [email or web address]. Admission status: in review: per UR ENA Gilliam. Dr. Klein stated that an MRI was pending, pt's symptoms had appeared to resolve and that if MRI is - for stroke pt will likely d/c to home setting. PT did see pt this morning and his notes show that pt is functionally independent at baseline and is active physically (yoga 2xweek). He has cleared her for a home d/c when stable. P: follow prn as tests unfold and check in with pt when plan for today is clarified. CM Discharge Assessment Start: 08/31/19 10:43 Freq: Status: Active Protocol: Document 08/31/19 10:43 ITV (Rec: 08/31/19 10:44 [email or web address] [id number]) Discharge Planning Assessment Advance Directives? No History Provided By Medical Record Prior Living Arrangements House Household Members spouse Comment spouse is a retired physician Independent with ADL's Yes Is patient alert and oriented? Yes Review Status In Process
--- NOTE | 2019-08-31 11:15 | OT.IP.TRT ---
Occupational Therapy Treatment Note M3 OT- IP Subjective and Pain Start: 08/31/19 11:18 Freq: Status: Active Protocol: Document 08/31/19 11:15 [email or web address] (Rec: 08/31/19 11:21 PJ [id number]) OT- Subjective Occupational Therapy Visit Type Type Administrative Note Visit Start Time 11:15 Notes OT referral received after pt admitted with transient episode of aphasia and R visual field deficits. NIH score 0. Per discussion with P.T. and RN, pt is at baseline level of function in all areas with no focal deficits. No OT needs identified for this admission. No charge.
[2019-08-31 12:00] VITALS: BP 132/58; PULSE 87; RESP 16; TEMP 37; O2SAT 96
[2019-08-31 13:16] LABS: UR Morphine/Opiate cutoff 300 Negative (Negative); Ur Creatinine Normal (Normal); Ur Specific Gravity Normal (Normal); Urine Amphetamines Negative (Negative); Urine Barbiturates Negative (Negative); Urine Benzodiazepines Negative (Negative); Urine Cocaine Negative (Negative); Urine MDMA Negative (Negative); Urine Methadone Negative (Negative); Urine Methamphetamines Negative (Negative); Urine Oxycodone Negative (Negative); Urine Phencyclidine Negative (Negative); Urine Tetrahydrocannabinol Negative (Negative); Urine Tricyclic Antidepressant Negative (Negative); Urine pH Normal (Normal)
--- NOTE | 2019-08-31 13:40 | PM.DS.1 ---
History of Present Illness History of Present Illness Date Patient Seen: 08/31/19 Time Patient Seen: 13:40 Chief complaint: thinks TIA a couple of hours ago Narrative: As per CASEY Dawson: Ms. Lynne Nunes is a 73-year-old female patient with a history significant for migraines, functional murmur, irritable bladder with urgency who presents to the ER following episode of aphasia. Patient states that approximately 11 this morning she was working in a computer when she developed change in her vision in the right lower quadrant that progressed into the central vision of her right eye. The patient also describes an atypical headache with pain moving from her tenriism to the lateral head and moving back and forth side to side. Her who is retired OBGYN physician had her take migraine medication that sounds to be Fioricet. The patient's symptoms lasted for 30 minutes returning to normal. Patient subsequently was speaking with her in approximately 2 in the afternoon when she developed difficulty speaking described as speaking gibberish. The symptoms lasted for 5 minutes. Patient endorses a history of a similar situation occurring approximately 1 year ago with aphasia that was not evaluated at that time. Prior to today's events the patient states she has been in good health and denies fevers or chills, headaches or dizziness, nasal congestion or sore throat. She has had no chest pain and denies palpitations but notes history of a functional murmur since childhood. She has had no shortness of breath cough or wheezing. She denies abdominal pain, heartburn, nausea vomiting, diarrhea or constipation. She has urinary urgency for which she takes Myrbetriq. She reports balance problems for which she is taking yoga. She has sustained a fall 2 weeks ago when she got ?tangled up in equipment?. Upon arrival to the ER the patient is afebrile with temperature 97.8?, heart rate of 80, blood pressure 133/79, respirations of 22 saturating 97% on room air. CT of the head was obtained was negative for early infarct hemorrhage. The CT angio of the head neck was obtained which shows no filling defects. On laboratory analysis she has white count of 5.0 with hemoglobin of 14.2 and hematocrit of 41.6 and platelets of 201. She has a PT of 10.4 and INR of 0.9 and PTT of 26. Her electrolytes are all within normal limits she has a BUN of 17 and creatinine 0.8. Her nonfasting glucose is 86. Troponin is less than 0.01 2. On ED evaluation patient's symptoms had completely resolved within NIH score 0. Patient is admitted to the medicine service for further evaluation and monitoring of TIA. Discharge Providers Provider Date of admission: 08/30/19 19:08 Discharge Date: 08/31/19 Consults: 08/30/19 20:39 Consult to Discharge Planning Routine Comment: Consult to Occupational Therapy Evaluate & Treat Comment: TIA, expressive aphasia, disequilibrium Physician Instructions: Evaluate and treat Consult to Physical Therapy Evaluate & Treat Comment: TIA, expressive aphasia, disequilibrium Physician Instructions: Evaluate and Treat Discharge provider: Angel Luis Klein DO Summary Hospital Course Discharge Diagnosis: 1. Transitory ischemic attack, acute, resolved upon arrival, active 2. Migraine headache, chronic, resolved prior to arrival. 3. Heart murmur, chronic, stable. 4. Urinary urgency, chronic, present on admission, stable. 5. Right vestibular schwannoma Hospital Course: This is a 71-year-old female patient who presents to the ER following 5 minutes episode of aphasia which is a 2nd time event the 1st occurring a year ago. Patient also has a history of migrainous headaches presenting with right visual field deficit progressing to central vision that was antecedent to the episode of aphasia. 1. Transitory ischemic attack, acute, resolved upon arrival, active -patient with 5 minutes episode of expressive aphasia reported as speaking gibberish, no notation of facial droop, ptosis, vision changes, arm weakness or ataxia. ABCD2 score of 2. -the patient notes this is the 2nd such event with similar presentation of aphasia occurring 1 year ago. -patient with an antecedent migraine headache occurring approximately 3 hours prior with right lower visual field loss resolving in 30 minutes with medication. The patient had returned to baseline between events. -NIH score upon arrival to the ER 0. -Head CT and CT angio of the head and neck are unremarkable. -echocardiogram was notable for mild to moderate MR, but normal ventricular function and no wall motion abnormalities. -MR stroke protocol did not show any acute infarcts or significant vascular stenosis. Incidentally found was a 4 x 6 x 3 mm right vestibular schwannoma. She should follow-up with her primary care provider for outpatient audiometry and balance testing. She may need a repeat MRI for surveillance. -no events were noted on telemetry -patient to continue aspirin 81 mg daily and Lipitor 40 mg daily after TIA. -lipid panel shown an LDL of slightly over 100, patient is started on Lipitor 40 mg daily for secondary prevention. 2. Migraine headache, chronic, resolved prior to arrival. -the patient provides history of migraine headaches occurring approximately monthly the last being 1 month ago. -she describes her symptoms as described as typical with visual changes but notes headache was different moving around her head bilaterally including temples, lateral, and occipital but never including the crown of her head. -patient took medication provider prior which sounds to be Fioricet with resolution of her headache within 30 minutes. -the patient has no routine abortive medication. -patient had no recurrence of symptoms admitted. 3. Heart murmur, chronic, stable. -patient states she has had complete cardiac workup decades ago with identification of functional murmur. -patient has had no chest pain and denies shortness of breath and has no exertional dyspnea. -echocardiogram as noted above. 4. Urinary urgency, chronic, present on admission, stable. -Continue patient's home regimen of Myrbetriq 25 mg daily. 5. Right vestibular schwannoma -patient is asymptomatic at this time, however she needs audiometry imbalance testing as an outpatient. She may also need repeat MRI for surveillance. Dispo: Discharged home, with outpatient follow-up with primary care provider for incidentally found right vestibular schwannoma and continued secondary prevention after TIA. Exam Vital Signs (past 8 hours): - 08/31/19 06:00 08/31/19 08:59 08/31/19 12:00 Temperature 98.3 F 98.6 F Pulse Rate 74 80 87 Respiratory Rate 16 18 16 Blood Pressure 104/55 L 149/66 H 132/58 L Pulse Oximetry 94 98 96 Oxygen Delivery Method Room Air Oxygen Flow Rate 0 Narrative Exam Narrative: GENERAL APPEARANCE: Well developed, well nourished, in no acute distress. SKIN: Inspection of the skin reveals no rashes, ulcerations or petechiae. HEENT: The sclerae were anicteric and conjunctivae were pink and moist. Extraocular movements were intact and pupils were equal, round with normal accommodation. External inspection of the ears and nose showed no scars, lesions, or masses. Lips, teeth, and gums showed normal mucosa. The oral mucosa, hard and soft palate, tongue and posterior pharynx were unremarkable. NECK: Supple and symmetric. There was no thyroid enlargement, and no tenderness, or masses were felt. CHEST: Normal AP diameter and normal contour without any kyphoscoliosis. LUNGS: Auscultation of the lungs revealed no wheezes, rhonchi, or rales. CARDIOVASCULAR: There was a regular rate and rhythm without any murmurs, gallops, rubs. Peripheral pulses were 2+ and symmetric. ABDOMEN: Soft and nontender with normal bowel sounds. No ascites was noted. MUSCULOSKELETAL: There was no tenderness or effusions noted. Muscle strength and tone were normal. EXTREMITIES: No cyanosis, clubbing or edema. NEUROLOGIC: Alert and oriented x 3. Normal affect. Gait was normal. Rapid alternating movements smooth and coordinated. No abnormalities with heel to hammond testing. Cranial nerves 2-12 grossly intact bilaterally. Strength is +5/5 in the Upper Extremities and Lower Extremities Bilaterally. Sensation to touch was normal. Objective Labs Result Diagrams: 08/31/19 06:50 08/31/19 06:50 Labs: Laboratory Results - last 24 hr 08/30/19 08/30/19 08/30/19 16:25 16:25 16:25 WBC 5.0 RBC 4.83 Hgb 14.2 Hct 41.6 MCV 86.2 MCH 29.5 MCHC 34.2 RDW 13.0 Plt Count 201 Neut % (Auto) 51.5 Lymph % (Auto) 32.4 Whiteside % (Auto) 13.2 Eos % (Auto) 1.8 L Baso % (Auto) 1.1 Neut # (Auto) 2600 Lymph # (Auto) 1600 Whiteside # (Auto) 700 Eos # (Auto) 100 Baso # (Auto) 100 PT 10.9 INR 0.9 APTT 26 L Sodium 140 Potassium 4.2 Chloride 105 Carbon Dioxide 27 BUN 17 Creatinine 0.80 Estimated GFR > 60.0 BUN/Creatinine Ratio 21.3 Glucose 86 Calcium 9.7 Magnesium Troponin I < 0.012 Triglycerides Cholesterol LDL Cholesterol, Calc HDL Cholesterol U Opiates 300ng/mL cut Ur Oxycodone Screen Urine Methadone Screen Ur Barbiturates Screen U Tricyclic Antidepress Ur Phencyclidine Scrn Ur Amphetamines Screen U Methamphetamines Scrn Ur MDMA Scrn (Ecstasy) U Benzodiazepines Scrn Urine Cocaine Screen U Marijuana (THC) Screen 08/30/19 08/31/19 08/31/19 16:25 06:50 06:50 WBC 4.3 L RBC 4.55 Hgb 13.5 Hct 39.3 MCV 86.3 MCH 29.6 MCHC 34.3 RDW 12.9 Plt Count 183 Neut % (Auto) 48.2 L Lymph % (Auto) 36.0 Whiteside % (Auto) 12.0 Eos % (Auto) 3.0 Baso % (Auto) 0.8 Neut # (Auto) 2100 Lymph # (Auto) 1600 Whiteside # (Auto) 500 Eos # (Auto) 100 Baso # (Auto) 0 PT INR APTT Sodium 138 Potassium 4.1 Chloride 106 Carbon Dioxide 24 BUN 14 Creatinine 0.90 Estimated GFR > 60.0 BUN/Creatinine Ratio 15.6 Glucose 98 Calcium 8.9 Magnesium 2.3 Troponin I Triglycerides 106 Cholesterol 167 LDL Cholesterol, Calc 106 H HDL Cholesterol 40 U Opiates 300ng/mL cut Ur Oxycodone Screen Urine Methadone Screen Ur Barbiturates Screen U Tricyclic Antidepress Ur Phencyclidine Scrn Ur Amphetamines Screen U Methamphetamines Scrn Ur MDMA Scrn (Ecstasy) U Benzodiazepines Scrn Urine Cocaine Screen U Marijuana (THC) Screen 08/31/19 12:00 WBC RBC Hgb Hct MCV MCH MCHC RDW Plt Count Neut % (Auto) Lymph % (Auto) Whiteside % (Auto) Eos % (Auto) Baso % (Auto) Neut # (Auto) Lymph # (Auto) Whiteside # (Auto) Eos # (Auto) Baso # (Auto) PT INR APTT Sodium Potassium Chloride Carbon Dioxide BUN Creatinine Estimated GFR BUN/Creatinine Ratio Glucose Calcium Magnesium Troponin I Triglycerides Cholesterol LDL Cholesterol, Calc HDL Cholesterol U Opiates 300ng/mL cut Negative Ur Oxycodone Screen Negative Urine Methadone Screen Negative Ur Barbiturates Screen Negative U Tricyclic Antidepress Negative Ur Phencyclidine Scrn Negative Ur Amphetamines Screen Negative U Methamphetamines Scrn Negative Ur MDMA Scrn (Ecstasy) Negative U Benzodiazepines Scrn Negative Urine Cocaine Screen Negative U Marijuana (THC) Screen Negative Discharge Plan Discharge Plan Patient Disposition: Home Discharge comment: You were admitted to the hospital with a TIA. You were started on aspirin and Lipitor to help prevent a recurrence of another TIA. Your MRI did not show any strokes but incidentally found was a right vestibular schwannoma. You should have audiometry testing as well as balance testing done as an outpatient. You may need a follow-up MRI for surveillance. This should be done at the direction of your primary care provider, or if warranted a specialist at the direction of your PCP. Discharge orders & Medications Prescriptions: New atorvastatin 40 mg tablet 40 mg PO BEDTIME 30 Days Qty: 30 RF: 0 Continued cholecalciferol (vitamin D3) [Vitamin D3] 1,000 UNIT tablet 5,000 iu PO QDAY Qty: 0 RF: 0 magnesium 200 mg Tablet 400 mg PO DAILY Qty: 0 RF: 0 metronidazole [MetroCream] 0.75 % cream 0.75 % Topical BID Qty: 45 RF: 0 melatonin 5 mg Tablet 20 mg PO BEDTIME Qty: 0 RF: 0 estradiol 2 mg tablet 3 mg PO DAILY Qty: 135 RF: 7 Myrbetriq 25 mg tablet extended release 24 hr 25 mg PO .QHS Qty: 90 RF: 3 aspirin [Aspirin Low Dose] 81 mg Tablet,Delayed Release (Dr/Ec) 81 mg PO QPM RF: 0 hydroquinone microspheres 4 % Cream,Extended Release 1 applic TOPICAL QAM AND QHS RF: 0 calcium carbonate-vitamin D3 [Calcium 600 + D(3)] 600 mg(1,500mg) -400 unit Tablet 1 tab PO QPM RF: 0 alpha lipoic acid 200 mg Capsule 200 mg PO DAILY RF: 0 [id number]-[id number]-[id number] C-Mn [Glucosamine Chondroitin MaxStr] 500-400 mg Capsule 1.5 cap PO BID RF: 0 lutein 20 mg Capsule 20 mg PO DAILY RF: 0 coQ10 (ubiquinol) 200 mg Capsule 200 mg PO DAILY RF: 0 Discharge Health Status Health Concerns: TIA R 4x6x3 mm vestibular schwannoma. Diet/Activity/Treatments Diet: Diet as Tolerated and Low-cholesterol Activity: As tolerated Visit Report/Discharge Packet Instructions: DI for Transient Ischemic Attack, Atorvastatin Visit Report Forms: Patient Portal/API, Stroke Signs & Symptoms Discharge Data Attending Provider: Angel Luis Klein Admit Date/Time: 08/30/19 19:08 Quality VTE Deep Vein Thrombosis/Pulmonary Embolism Present on Admission: No
[2019-08-31] MEDS: ATORVASTATIN 20 MG TABLET 40 MG PO (14:50)
--- NOTE | 2019-08-31 15:44 | PC.NURSE ---
Discharge order received, and patient's significant other arrived just prior to shift change. Started going over discharge instructions but unable to complete thoroughly at this time due to change of shift. IV and telemetry removed and patient dressing. Instructions given to patient to review and then plan for evening shift RN to review and complete discharge prior to patient leaving. Dr. Klein at bedside at this time to speak with patient and her SO.
--- NOTE | 2019-08-31 16:13 | PC.NURSE ---
Assumed care of pt at 1500. Pt sitting up in chair reading discharge paperwork prepared by day shift RN. Dr. Nuñez rounding on pt answering discharge questions. Pt ambulated out of hospital at approx 1600 with all personal belongings and discharge paperwork. Escorted off unit in stable condition by RECEIVING TANK OPERATOR.
== END 2019-08-31 16:00 | disposition home or self-care (01) ==
LOC: ED 18:34 → AC 19:09
PROVIDERS: Nurse Practitioner Adult Health; Admitting Provider Internal Medicine; Emergency Provider Emergency Medicine; Visit Provider Internal Medicine
DX: G45.9 Transient cerebral ischemic attack, unspecified (principal); R29.818 Other symptoms and signs involving the nervous system; R47.1 Dysarthria and anarthria; G43.909 Migraine, unspecified, not intractable, without status migrainosus; R01.1 Cardiac murmur, unspecified; R39.15 Urgency of urination; D36.10 Benign neoplasm of peripheral nerves and autonomic nervous system, unspecified
CPT/HCPCS: 36415; 70450; 70496; 70498; 70548; 70553; 80048; 80061; 80305; 83735; 84484; 85025; 85610; 85730; 93005; 93306; 96360; 96361; 96372; 97161; 99285; G0378; A9579; J1650; Q9967

== ENCOUNTER → 2020-02-28 09:38 | Outpatient (CLI) | payer MEDICARE, OTHER, SELFPAY ==
[2019-08-30 19:27] VITALS: BMI 24.1
--- NOTE | 2020-02-28 | DI.MRI.S_ITS ---
PROCEDURE: MR BRAIN (IAC) WWO CON INDICATIONS: Benign neoplasm of cranial nerves TECHNIQUE: Noncontrast sagittal T1 spin echo, axial FLAIR, axial gradient echo, axial diffusion and ADC through the brain. Axial thin-slice 3D CISS, coronal TruFISP, axial T1 spin echo with fat saturation through the internal auditory canals. After the administration of contrast, thin slice axial and coronal T1 spin echo with fat saturation through the internal auditory canals, and axial T1 spin echo with fat saturation through the brain. COMPARISON: [facility], MR, MR STROKE, 08/31/2019, 10:21. FINDINGS: Image quality: Excellent. Cerebellopontine angles: No cerebellopontine angle masses. 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 CSF spaces: Ventricles are normal in size and shape. No extra-axial fluid collections. Basal cisterns are patent. Brain: No intracranial bleeds or mass effects. Win-white matter interface is intact. Scattered small white matter changes, probably represent chronic microvascular ischemic disease, versus statistically less likely demyelination or other infectious, inflammatory, neurodegenerative etiology, technically nonspecific. No abnormal intracranial enhancement. Diffusion weighted images demonstrate no acute ischemic insults. Brainstem appears normal. Normal intravascular flow voids are present. Skull and face: Calvarial marrow signal is normal. Orbits appear normal. Sinuses: Sinuses and mastoids are clear. 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 Dictated by: Ruslan Kovacs M.D. on 02/28/2020 at 11:15 Approved by: Ruslan Kovacs M.D. on 02/28/2020 at 11:23
== END ==
PROVIDERS: PCP Internal Medicine; Referring Provider Otolaryngology Otology & Neurotology; Visit Provider Otolaryngology Otology & Neurotology
DX: D33.3 Benign neoplasm of cranial nerves (principal)
CPT/HCPCS: 70553

== ENCOUNTER → 2021-02-27 11:49 | Outpatient (CLI) | payer MEDICARE, OTHER, SELFPAY ==
[2019-08-30 19:27] VITALS: BMI 24.1
--- NOTE | 2021-02-27 11:54 | DI.MRI.S_ITS ---
PROCEDURE: MR BRAIN (IAC) WWO CON INDICATIONS: Benign neoplasm of cranial nerves TECHNIQUE: Noncontrast sagittal T1 spin echo, axial FLAIR, axial gradient echo, axial diffusion and ADC through the brain. Axial thin-slice 3D CISS, coronal TruFISP, axial T1 spin echo with fat saturation through the internal auditory canals. After the administration of contrast, thin slice axial and coronal T1 spin echo with fat saturation through the internal auditory canals, and axial T1 spin echo with fat saturation through the brain. COMPARISON: [facility], MR, MR STROKE, 08/31/2019, 10:21. [facility], MR, MR BRAIN (IAC) WWO CON, 02/28/2020, 9:51. FINDINGS: Image quality: Excellent. Cranial nerves and cerebellopontine angles: As identified on previous exam, there is a 4 x 6 x 3 mm right internal auditory canal enhancing lesion most consistent with schwannoma. It is slightly more prominent on current exam measuring 4 x 9 by 3 mm. No new areas of abnormal signal, enhancement or mass lesion are identified. The ventricular system and cortical sulci demonstrate atrophy, consistent for the patient's stated age. There are areas of increased T2/FLAIR signal intensity within the periventricular and subcortical white matter. There is no acute intra-or extra axial fluid collection. No acute hemorrhage, mass lesion or midline shift. Brainstem is unremarkable. There are no areas of restricted diffusion. Globes are symmetrical. Sinuses are aerated. Osseous structures are intact. IMPRESSION: 1. Focus of increased enhancement within the right auditory canal most consistent with schwannoma. It is noted that it has demonstrated a mild interval increase in size compared to prior exam. Dictated by: Dee Dee Alex M.D. on 02/27/2021 at 14:48 Approved by: Dee Dee Alex M.D. on 02/27/2021 at 14:56
== END ==
PROVIDERS: PCP Internal Medicine; Referring Provider Otolaryngology Otology & Neurotology; Visit Provider Otolaryngology Otology & Neurotology
DX: D33.3 Benign neoplasm of cranial nerves (principal)
CPT/HCPCS: 70553; A9579

== ENCOUNTER → 2022-12-20 14:54 | Outpatient (CLI) | payer MEDICARE, OTHER, SELFPAY ==
[2019-08-30 19:27] VITALS: BMI 24.1
--- NOTE | 2022-12-20 | DI.MRI.S_ITS ---
PROCEDURE: MR BRAIN (IAC) WWO CON INDICATIONS: Benign neoplasm of cranial nerves TECHNIQUE: Noncontrast sagittal T1 spin echo, axial FLAIR, axial gradient echo, axial diffusion and ADC through the brain. Axial thin-slice 3D CISS, coronal TruFISP, axial T1 spin echo with fat saturation through the internal auditory canals. After the administration of contrast, thin slice axial and coronal T1 spin echo with fat saturation through the internal auditory canals, and axial and coronal and sagittal T1 spin echo with fat saturation through the brain. COMPARISON: [facility], MR, MR BRAIN (IAC) WWO CON, 02/27/2021, 12:22. FINDINGS: Image quality: Excellent. Cerebellopontine angles: No cerebellopontine angle masses. Inner ear structures appear normally formed. The ovoid enhancing focus within the right internal auditory canal is not significantly changed, measuring roughly 9 mm transverse by 4 mm anteroposterior by 3 mm craniocaudal. CSF spaces: Ventricles are normal in size and shape. No extra-axial fluid collections. Basal cisterns are patent. Brain: No intracranial bleeds or mass effects. There is mild diffuse cerebral volume loss. Mild degree of patchy high FLAIR signal within the periventricular and subcortical white matter. Win-white matter interface is intact. No abnormal intracranial enhancement. Diffusion weighted images demonstrate no acute ischemic insults. Brainstem appears normal. Normal intravascular flow voids are present. Skull and face: Calvarial marrow signal is normal. Orbits appear normal. Sinuses: Sinuses and mastoids are clear. IMPRESSION: 1. No significant change in right intracanalicular acoustic neuroma versus schwannoma. 2. Mild volume loss and small vessel ischemic disease. Dictated by: Hasmukh Melendez M.D. on 12/21/2022 at 8:37 Approved by: Hasmukh Melendez M.D. on 12/21/2022 at 8:39
== END ==
PROVIDERS: PCP Internal Medicine; Referring Provider Otolaryngology Otology & Neurotology; Visit Provider Otolaryngology Otology & Neurotology
DX: D33.3 Benign neoplasm of cranial nerves (principal)
CPT/HCPCS: 70553; A9579

== ENCOUNTER → 2024-01-28 15:10 | Outpatient (CLI) | payer MEDICARE, OTHER, SELFPAY ==
[2019-08-30 19:27] VITALS: BMI 24.1
--- NOTE | 2024-01-28 15:13 | DI.MRI.S_ITS ---
PROCEDURE: MR BRAIN (IAC) WWO CON INDICATIONS: Sensorineural hearing loss, bilateral TECHNIQUE: Noncontrast sagittal T1 spin echo, axial FLAIR, axial gradient echo, axial diffusion and ADC through the brain. Axial thin-slice 3D CISS, coronal TruFISP, axial T1 spin echo with fat saturation through the internal auditory canals. After the administration of contrast, thin slice axial and coronal T1 spin echo with fat saturation through the internal auditory canals, and axial and coronal and sagittal T1 spin echo with fat saturation through the brain. COMPARISON: [facility], MR, MR IAC (BRAIN) WWO CON, 12/20/2022, 15:21. FINDINGS: Image quality: Excellent. Cerebellopontine angles: Solid enhancing mass lesion in the right internal auditory canal remains entirely unchanged from the prior exam. The left 7th and 8th cranial nerve complex unremarkable. Both inner ears normal CSF spaces: Ventricles are normal in size and shape. No extra-axial fluid collections. Basal cisterns are patent. Brain: No intracranial bleeds or mass effects. Win-white matter interface is intact. No abnormal intracranial enhancement. Diffusion weighted images demonstrate no acute ischemic insults. Brainstem appears normal. Normal intravascular flow voids are present. Skull and face: Calvarial marrow signal is normal. Orbits appear normal. Sinuses: Sinuses and mastoids are clear. IMPRESSION: Stable right intra canalicular acoustic schwannoma Approved by: Catrachito Cruz M.D. on 01/28/2024 at 17:24
== END ==
PROVIDERS: PCP Internal Medicine; Referring Provider Otolaryngology Otology & Neurotology; Visit Provider Otolaryngology Otology & Neurotology
DX: D33.3 Benign neoplasm of cranial nerves (principal); H90.3 Sensorineural hearing loss, bilateral
CPT/HCPCS: 70553; A9579

== ENCOUNTER → 2024-06-02 09:52 | Outpatient (CLI) | payer MEDICARE, OTHER, SELFPAY ==
[2019-08-30 19:27] VITALS: BMI 24.1
--- NOTE | 2024-06-02 | DI.MG.S_ITS ---
BILATERAL DIGITAL DIAGNOSTIC MAMMOGRAM 3D/2D: 06/02/2024 CLINICAL: Right breast pain. Comparison is made to exams dated: 07/14/2023 mammogram, 07/22/2022 mammogram, and 05/22/2021 mammogram - [facility]. The breasts are heterogeneously dense, which may obscure small masses (category c / 51-75% glandular tissue). No significant masses, calcifications, or other findings are seen in either breast. IMPRESSION: INCOMPLETE: NEED ADDITIONAL IMAGING EVALUATION There is no abnormality seen in the right breast to correspond with the area of clinical concern and pain in the sub-areolar depth, however, ultrasound is recommended for further evaluation and is scheduled to immediately follow this examination. Based on the Tyrer Cuzick model (a risk assessment model) the patient's lifetime risk is 4.4% and her 10 year risk is 0.0%. According to the ACR, ACS, and NCCN guidelines, an annual breast MRI exam along with mammogram is recommended if the patient's lifetime risk is 20% or greater. This exam was interpreted at Station ID: [id number]. NOTE: For mammograms, a report in lay terms will be sent to the patient. Approximately 15% of breast malignancies will not be visualized mammographically. In the management of a palpable breast mass, a negative mammogram must not discourage biopsy of a clinically suspicious lesion. Electronically Signed By: Rich Katz M.D. aty/:06/02/2024 12:59:57 ACR BI-RADS Category 0: Incomplete: Need Additional Imaging Evaluation
--- NOTE | 2024-06-02 09:54 | DI.US.S_ITS ---
LIMITED ULTRASOUND OF RIGHT BREAST AND AXILLA: 06/02/2024 CLINICAL: Patient returns today to evaluate a focal asymmetry in the right breast. Comparison is made to exams dated: 06/02/2024 mammogram - [facility], 07/14/2023 mammogram, 07/22/2022 mammogram, and 05/22/2021 mammogram - [facility]. Color flow and real-time ultrasound of the right breast retroareolar and axilla regions were performed. Win scale images of the real-time examination were reviewed. There is a 0.8 cm x 0.4 cm x 0.7 cm wider than tall oval cyst in the right breast at 8 o'clock in the retroareolar region. This oval cyst is hypoechoic with internal echoes and no posterior acoustic shadowing or enhancement. This correlates to the reported pain. No significant abnormalities were seen sonographically in the right axilla. IMPRESSION: PROBABLY BENIGN The 0.8 cm x 0.4 cm x 0.7 cm wider than tall oval cyst in the right breast resembles a complicated cyst and is probably benign. A follow-up right mammogram and a right ultrasound in 6 months is recommended to demonstrate stability. Findings and recommendations were conveyed to the patient during today's evaluation. This exam was interpreted at Station ID: [id number]. Electronically Signed By: Rich Katz M.D. aty/:06/02/2024 13:02:16 letter sent: Followup Recommended ACR BI-RADS Category 3: Probably Benign
== END ==
PROVIDERS: Referring Provider Obstetrics & Gynecology; Visit Provider Obstetrics & Gynecology
DX: N64.4 Mastodynia; N63.10 Unspecified lump in the right breast, unspecified quadrant; R92.2 Inconclusive mammogram; N60.01 Solitary cyst of right breast; R92.333 Mammographic heterogeneous density, bilateral breasts
CPT/HCPCS: 76642; 77066; G0279

== ENCOUNTER → 2024-11-20 14:34 | Outpatient (CLI) | payer MEDICARE, OTHER, SELFPAY ==
[2019-08-30 19:27] VITALS: BMI 24.1
[2024-11-25 14:11] LABS: ANA Screen, IFA Negative (.)
== END ==
PROVIDERS: Referring Provider Dermatology; Visit Provider Dermatology
DX: T69.1XXA Chilblains, initial encounter (principal); X31.XXXA Exposure to excessive natural cold, initial encounter
CPT/HCPCS: 36415; 86038

== ENCOUNTER → 2025-01-12 09:53 | Outpatient (CLI) | payer MEDICARE, OTHER, SELFPAY ==
[2019-08-30 19:27] VITALS: BMI 24.1
--- NOTE | 2025-01-12 09:54 | DI.US.S_ITS ---
US breast RT limited, MM diagnostic mammo unilat RT: 01/12/2025 BI-RADS: 1 CLINICAL: 79-year old female for right diagnostic mammogram and right diagnostic breast ultrasound. The patient presents for a follow-up. Tyrer-Cuzick lifetime risk of 3.4%. PRIOR EXAMS 06/02/2024, 07/14/2023, 07/22/2022, 05/22/2021. MAMMOGRAPHY TECHNIQUE: 2D and 3D (tomosynthesis) digital mammographic views obtained, with additional images as needed for full coverage. Current study was also evaluated with a Computer Aided Detection (CAD) system. ULTRASOUND TECHNIQUE TARGETED Right Breast Ultrasound: Real-time ultrasound exam was performed focused to area of clinical and/or imaging concern. DENSITY Right: C. The breasts are heterogeneously dense, which may obscure small masses. MAMMOGRAPHY FINDINGS Right: There is a (Barbell) biopsy marker present. No suspicious mass, asymmetry, microcalcification, or other abnormality seen. ULTRASOUND FINDINGS Right: Outer at 8:00, Retroareolar: The previously seen probable complicated cyst is no longer visualized. No suspicious sonographic finding present. IMPRESSION: Right * No evidence of malignancy. RECOMMENDATIONS Bilateral * Annual screening mammography (due May 2025). COMMENTS: Findings and recommendations were conveyed to the patient during today's evaluation. OVERALL ASSESSMENT CATEGORY BI-RADS-1: Negative. The [employer] recommends annual screening mammography beginning at age 40 for women with average risk of breast cancer. ELECTRONICALLY SIGNED: Lia Grover M.D. on 01/12/2025 at 12:57:13 PM PT Interpreting Station ID: [id number]
== END ==
LOC: MAMMO 09:53
PROVIDERS: Referring Provider Obstetrics & Gynecology; Visit Provider Obstetrics & Gynecology
DX: N63.41 Unspecified lump in right breast, subareolar (principal); N64.4 Mastodynia; R92.333 Mammographic heterogeneous density, bilateral breasts
CPT/HCPCS: 76642; 77065; G0279